=== PATIENT | male | born 2000 | race Caucasian/White ===

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

== ENCOUNTER 2018-06-17 01:17 | Emergency (ER) | payer MEDICAID, OTHER ==
[~2018-06-17] VITALS: Ht 177.8 cm; Wt 114.4 kg
[~2018-06-17 01:17] MED LIST changes: +BEN50 PO; +CETI10CA PO; +FLUT9.9S NASAL; +METF-849 PO; +NAPR-985 PO
[2018-06-17 01:23] VITALS: BP 161/82; Ht 177.8 cm; Wt 114.4 kg
--- NOTE | 2018-06-17 01:56 | ERD ---
ER Documentation Chief Complaint Chief Complaint painful urination x 1 day, also c/o blood in urine HPI This is a 17-year-old male who presents here in emergency department with complaints of dysuria, painful urination, for about a day. Also stated that he saw bright red blood whenever he urinates. Not sexually active. Denies headache, head injury, loss of consciousness, dizziness, neck pain, neck stiffness, throat pain, difficulty swallowing, difficulty breathing lying flat, shoulder pain, chest pain, back pain, abdominal pain, nausea, vomiting, constipation, diarrhea, loss of bowel and bladder control, trauma, injury, fa lls, difficulty walking due to pain, numbness or tingling sensation, calf pain, recent travel, recent major surgery in the last 3 weeks, calf pain, recent long travel, recent exposure to any illness, recent antibiotic use in the last 3 months, fever, chills, seizures. Past medical history: Diabetes. Medication: Metformin. Surgical history: Denies. Social: Denies smoking, use of alcoholic beverages, use of illegal drugs. ROS All systems reviewed and are negative except as per history of present illness. Medications Home Meds Active Scripts Phenazopyridine Hcl* (Pyridium*) 200 Mg Tab, 200 MG PO TID PRN for URINARY PAIN, #6 TAB Prov:LEONILA PRIDE 06/17/18 Cephalexin* (Keflex*) 500 Mg Capsule, 500 MG PO TID for 7 Days, CAP Prov:PASILABANCARLEEAR F 06/17/18 Metformin* (Glucophage*) 500 Mg Tab, 500 MG PO BID, #20 TAB Prov:FARHAN MORSE PA-C 10/24/17 Fluticasone Propionate (Flonase Allergy Relief) 9.9 Ml [place].susp, 2 SPRAY NASAL DAILY, #1 BOTTLE TO EACH NOSTRIL Prov:FARHAN MORSE PA-C 10/24/17 Cetirizine Hcl* (Zyrtec*) 10 Mg Capsule, 10 MG PO DAILY, #14 TAB.CHEW Prov:FARHAN MORSE PA-C 10/24/17 Acetaminophen* (Tylophen*) 500 Mg Capsule, 1 CAP PO Q6H PRN for PAIN AND OR ELEVATED TEMP, #30 CAP Prov:FARHAN MORSE PA-C 10/24/17 Naproxen* (Naprosyn*) 500 Mg Tablet, 500 MG PO BID PRN for PAIN AND/OR INFLAMMATION, #30 TAB Prov:FARHAN MORSE PA-C 10/24/17 Diphenhydramine Hcl* (Benadryl*) 50 Mg Cap, 50 MG PO QHS PRN for INSOMNIA, #20 CAP Prov:MARGARITO GAVIN PA-C 09/16/17 Metformin* (Glucophage*) 500 Mg Tab, 500 MG PO BID, #60 TAB Prov:MARSHALL RHODES NP 09/10/17 Metformin* (Glucophage*) 500 Mg Tab, 500 MG PO BID, #20 TAB Prov:FARHAN MORSE PA-C 08/18/17 Acetaminophen* (Tylophen*) 500 Mg Capsule, 1 CAP PO Q6H PRN for PAIN AND OR ELEVATED TEMP, #20 CAP Prov:DORENE DIEZ MD 12/15/16 Tramadol HCl (Tramadol HCl) 50 Mg Tablet, 50 MG PO Q4 PRN for PAIN, #15 TAB Prov:DORENE DIEZ MD 12/15/16 Allergies Allergies: Coded Allergies: No Known Drug Allergies (Verified Allergy, Mild, 12/15/16) PMhx/Soc History of Surgery: No Hx Neurological Disorder: No Hx Respiratory Disorders: No Hx Cardiac Disorders: No Hx Miscellaneous Medical Probl: Yes (DM; Deaf R side) Hx Alcohol Use: No Hx Substance Use: No Hx Tobacco Use: No Physical Exam Vitals Vital Signs Date Temp Pulse Resp B/P (MAP) Pulse Ox O2 O2 Flow FiO2 Time Delivery Rate 06/17/18 98.8 95 20 95 Room Air 04:04 06/17/18 97.5 103 20 161/82 97 01:23 (108) Physical Exam Const: No acute distress. Well-appearing. Head: Atraumatic Eyes: Normal Conjunctiva ENT: Normal External Ears, Nose and Mouth. Neck: Full range of motion. No meningismus. Resp: Clear to auscultation bilaterally Cardio: Regular rate and rhythm, no murmurs Abd: Soft, non tender, non distended. Normal bowel sounds. Negative Kenyon sign. Negative Divya sign (heel jar test). Negative psoas sign. Negative Rovsing sign. : Equal hair distribution. There is no testicular swelling. There is no scrotal swelling and tenderness. Bilateral inguinal area has no swelling/tenderness. Skin: No petechiae or rashes Back: No midline or flank tenderness. No CVA tenderness. Ext: No cyanosis, or edema Neur: Awake and alert. No neurological deficits. Psych: Normal Mood and Affect Result Diagram: 06/17/18 0205 06/17/18 0205 Results 24 hrs Laboratory Tests Test 06/17/18 02:05 White Blood Count 18.6 10^3/ul Red Blood Count 5.27 10^6/ul Hemoglobin 15.8 g/dl Hematocrit 45.2 % Mean Corpuscular Volume 85.8 fl Mean Corpuscular Hemoglobin 30.0 pg Mean Corpuscular Hemoglobin Concent 35.0 g/dl Red Cell Distribution Width 11.3 % Platelet Count 330 10^3/UL Mean Platelet Volume 9.7 fl Immature Granulocytes % 0.800 % Neutrophils % 80.0 % Lymphocytes % 11.9 % Monocytes % 6.1 % Eosinophils % 0.9 % Basophils % 0.3 % Nucleated Red Blood Cells % 0.0 /100WBC Immature Granulocytes # 0.150 10^3/ul Neutrophils # 14.9 10^3/ul Lymphocytes # 2.2 10^3/ul Monocytes # 1.1 10^3/ul Eosinophils # 0.2 10^3/ul Basophils # 0.1 10^3/ul Nucleated Red Blood Cells # 0.0 10^3/ul Prothrombin Time 10.9 Sec Prothrombin Time Ratio 0.9 INR International Normalized Ratio 0.78 Activated Partial Thromboplast Time 26.8 Sec Urine Color RED Urine Clarity CLOUDY Urine pH 6.0 Urine Specific [place] 1.036 Urine Ketones TRACE mg/dL Urine Nitrite NEGATIVE mg/dL Urine Bilirubin NEGATIVE mg/dL Urine Urobilinogen NEGATIVE mg/dL Urine Leukocyte Esterase 2+ Kayode/ul Urine Microscopic RBC > 182 /HPF Urine Microscopic WBC > 182 /HPF Urine Bacteria MODERATE /HPF Urine Hemoglobin 3+ mg/dL Urine Glucose 3+ mg/dL Urine Total Protein 2+ mg/dl Sodium Level 137 mmol/L Potassium Level 4.2 mmol/L Chloride Level 95 mmol/L Carbon Dioxide Level 29 mmol/L Anion Gap 13 Blood Urea Nitrogen 12 mg/dl Creatinine 0.58 mg/dl Est Glomerular Filtrat Rate mL/min > 60 mL/min Glucose Level 378 mg/dl Calcium Level 9.4 mg/dl Total Bilirubin 0.5 mg/dl Direct Bilirubin 0.00 mg/dl Indirect Bilirubin 0.5 mg/dl Aspartate Amino Transf (AST/SGOT) 19 IU/L Alanine Aminotransferase (ALT/SGPT) 26 IU/L Alkaline Phosphatase 121 IU/L Total Protein 7.7 g/dl Albumin 4.2 g/dl Globulin 3.50 g/dl Albumin/Globulin Ratio 1.20 Current Medications Medications Dose Sig/Satinder Start Time Status Last (Trade) Ordered Route PRN Stop Time Admin Dose Reason Admin Ceftriaxone 1 gm ONCE ONCE 06/17/18 DC 06/17/18 Sodium IM 03:30 03:33 (Rocephin) 06/17/18 03:31 Procedures/MDM Diagnostic tests: Urinalysis: UTI. Culture urine: Sent. Blood works: Reviewed. This case was discussed with my supervising physician, Dr. Margarito Cerrato. We both agreed with each other that this is not a DKA. He also suggested for me to give Ceftriaxone IM and send the patient with oral antibiotics. Treatment: Ceftriaxone IM. I offered IV insertion and IV fluids but patient strongly refused. Re-evaluation: Afebrile. Differential diagnosis I have low suspicion for DKA, sepsis, septic stone, obstructing kidney stone, renal failure. Final diagnosis: UTI. Prescription: Keflex. Pyridium. Follow-up with PCP in the next 24-48 hours. Come back here in the emergency department for any new symptoms or any worsening symptoms. All questions and concerns were answered. Patient and family members verbalized understanding and agreed with plan of care. Hemodynamically stable on discharge. Departure Diagnosis: Primary Impression: UTI (urinary tract infection) Condition: Stable Additional Instructions: Follow-up with PCP in the next 24-48 hours. Come back here in the emergency department for any new symptoms or any worsening symptoms. LEONILA PRIDE Jun 17, 2018 01:56
[2018-06-17] MEDS ORDERED: CEPH-443 PO (03:25)
[2018-06-17] MEDS ORDERED: PHEN-538 PO (03:25)
[2018-06-17] MEDS ORDERED: CEFTRIAXONE 1 GM INJ IM ONE (03:30)
[2018-06-17 04:04] VITALS: PULSE 95; RESP 20
== END 2018-06-17 04:00 | disposition home or self-care (01) ==
LOC: FTE 01:17
DX: N39.0 Urinary tract infection, site not specified (principal); E11.9 Type 2 diabetes mellitus without complications; R31.9 Hematuria, unspecified; Z79.84 Long term (current) use of oral hypoglycemic drugs
CPT/HCPCS: 80053; 81001; 85025; 85610; 85730; 87086; 96372; J0696; Z7502

== ENCOUNTER 2018-11-02 06:59 | Emergency (ER) | payer MEDICAID ==
[~2018-11-02] VITALS: Ht 172.7 cm; Wt 110.4 kg
[~2018-11-02 06:59] MED LIST changes: +CEPH-443 PO; +CLOT30CR24 TOP; +IBUP-1542 PO; +MUPI22OI2 TOP; +PHEN-538 PO; +SULF1TAB31 PO
[2018-11-02 07:03] VITALS: Ht 172.7 cm; Wt 110.4 kg
[2018-11-02] MEDS ORDERED: SOD CHLORIDE 0.9% 1,000 ML IV STA (08:10)
[2018-11-02] MEDS ORDERED: CLOT30CR24 TOP (09:28)
[2018-11-02] MEDS ORDERED: FLUC150T PO (09:28)
[2018-11-02] MEDS ORDERED: METF-849 PO (09:28)
[2018-11-02 09:47] VITALS: BP 135/89; PULSE 81; RESP 18
--- NOTE | 2018-11-02 12:17 | ERD ---
ER Documentation Chief Complaint Chief Complaint gential rash x3 days HPI This is a 17-year-old male patient presents emergency room with complaint of redness and itching to his penis starting 2 days ago. Denies being sexually active. Denies penile discharge. Patient states he is diabetic and stopped taking his metformin and has not followed up with his primary care doctor. He does not check his blood sugar at home. Patient states he just got burnout on being diabetic and stopped his medications and follow-ups. Denies any other chronic medical conditions. Denies abdominal pain, no nausea vomiting. ROS All systems reviewed and are negative except as per history of present illness. Medications Home Meds Active Scripts Metformin* (Glucophage*) 500 Mg Tab, 500 MG PO BID for DIABETES for 30 Days, #60 TAB Prov:TAURUS RABAGO NP 11/02/18 Clotrimazole* (Clotrimazole* AF) 1% - 30 Gm Cream.gm., 1 APPLIC TOP BID for 14 Days, TUB Prov:TAURUS RABAGO NP 11/02/18 Fluconazole* (Diflucan*) 150 Mg Tablet, 150 MG PO ONCE, #1 TAB Prov:TAURUS RABAGO NP 11/02/18 Sulfamethoxazole/Trimethoprim* (Bactrim Ds* Tablet) 1 Each Tablet, 1 TAB PO BID for 7 Days, #14 TAB Prov:DORENE DIEZ MD 08/05/18 Clotrimazole* (Clotrimazole* AF) 1% - 30 Gm Cream.gm., 1 APPLIC TOP BID for 10 Days, TUB Prov:DORENE DIEZ MD 08/05/18 Ibuprofen* (Motrin*) 600 Mg Tab, 600 MG PO Q6, #20 TAB Prov:DORENE DIEZ MD 08/05/18 Ibuprofen* (Motrin*) 600 Mg Tab, 600 MG PO Q6, #30 TAB Prov:SYLVAIN IVAN PA-C 07/17/18 Mupirocin* (Bactroban*) 2% -22 Gram Oint...g., 1 APPLIC TOP BID for 7 Days, EA Prov:SYLVAIN IVAN PA-C 07/17/18 Sulfamethoxazole/Trimethoprim* (Bactrim Ds* Tablet) 1 Each Tablet, 1 TAB PO BID for 7 Days, #14 TAB Prov:SYLVAIN IVAN PA-C 07/17/18 Cephalexin* (Keflex*) 500 Mg Capsule, 500 MG PO QID for 7 Days, CAP Prov:SYLVAIN IVAN-C 07/17/18 Phenazopyridine Hcl* (Pyridium*) 200 Mg Tab, 200 MG PO TID PRN for URINARY PAIN, #6 TAB Prov:PASILABANCARLEEAR F 06/17/18 Cephalexin* (Keflex*) 500 Mg Capsule, 500 MG PO TID for 7 Days, CAP Prov:PASILABAN,KLAR F 06/17/18 Metformin* (Glucophage*) 500 Mg Tab, 500 MG PO BID, #20 TAB Prov:PROFARHAN ARMSTRONG-C 10/24/17 Fluticasone Propionate (Flonase Allergy Relief) 9.9 Ml [place].susp, 2 SPRAY NASAL DAILY, #1 BOTTLE TO EACH NOSTRIL Prov:FARHAN MORSE-C 10/24/17 Cetirizine Hcl* (Zyrtec*) 10 Mg Capsule, 10 MG PO DAILY, #14 TAB.CHEW Prov:FARHAN MORSE-C 10/24/17 Acetaminophen* (Tylophen*) 500 Mg Capsule, 1 CAP PO Q6H PRN for PAIN AND OR ELEVATED TEMP, #30 CAP Prov:FARHAN MORSE-C 10/24/17 Naproxen* (Naprosyn*) 500 Mg Tablet, 500 MG PO BID PRN for PAIN AND/OR INFLAMMATION, #30 TAB Prov:FARHAN MORSE-C 10/24/17 Diphenhydramine Hcl* (Benadryl*) 50 Mg Cap, 50 MG PO QHS PRN for INSOMNIA, #20 CAP Prov:LYDIA GAVINC 09/16/17 Metformin* (Glucophage*) 500 Mg Tab, 500 MG PO BID, #60 TAB Prov:MARSHALL RHODES NP 09/10/17 Metformin* (Glucophage*) 500 Mg Tab, 500 MG PO BID, #20 TAB Prov:PROFARHAN ARMSTRONG-C 08/18/17 Acetaminophen* (Tylophen*) 500 Mg Capsule, 1 CAP PO Q6H PRN for PAIN AND OR ELEVATED TEMP, #20 CAP Prov:DORENE DIEZ MD 12/15/16 Tramadol HCl (Tramadol HCl) 50 Mg Tablet, 50 MG PO Q4 PRN for PAIN, #15 TAB Prov:DORENE DIEZ MD 12/15/16 Allergies Allergies: Coded Allergies: No Known Drug Allergies (Verified Allergy, Mild, 07/17/18) PMhx/Soc Medical and Surgical Hx: pt denies Medical Hx, pt denies Surgical Hx History of Surgery: No Anesthesia Reaction: No Hx Neurological Disorder: No Hx Respiratory Disorders: No Hx Cardiac Disorders: No Hx Psychiatric Problems: No Hx Miscellaneous Medical Probl: Yes (Deaf R side) Hx Alcohol Use: No Hx Substance Use: No Hx Tobacco Use: No FmHx Family History: diabetes Physical Exam Vitals Vital Signs Date Temp Pulse Resp B/P (MAP) Pulse Ox O2 O2 Flow FiO2 Time Delivery Rate 11/02/18 98.4 81 18 135/89 99 Room Air 09:47 (104) 11/02/18 98.2 87 18 149/97 99 07:03 (114) Physical Exam Const: No acute distress Head: Atraumatic Eyes: Normal Conjunctiva, PERRL ENT: Normal External Ears, Nose and Mouth. Neck: Full range of motion. No meningismus. No lymphadenopathy Resp: Clear to auscultation bilaterally, no rales, no rhonchi, no wheezing Cardio: Regular rate and rhythm, no murmurs Abd: Soft, non tender, non distended. Normal bowel sounds Skin: No petechiae, no bruising, no rash. Genital exam: testicles without lesions or redness, pt is not circumcised, foreskin retracts without resistance, erythema to glans penis, no discharge not ed Back: No midline or flank tenderness Ext: No cyanosis, or edema Neur: Awake and alert Psych: Normal Mood and Affect Result Diagram: 11/02/1830 11/02/18 0730 Results 24 hrs Laboratory Tests Test 11/02/18 07:30 White Blood Count 9.1 10^3/ul Red Blood Count 5.16 10^6/ul Hemoglobin 15.4 g/dl Hematocrit 44.7 % Mean Corpuscular Volume 86.6 fl Mean Corpuscular Hemoglobin 29.8 pg Mean Corpuscular Hemoglobin Concent 34.5 g/dl Red Cell Distribution Width 11.4 % Platelet Count 376 10^3/UL Mean Platelet Volume 9.7 fl Immature Granulocytes % 1.000 % Neutrophils % 70.6 % Lymphocytes % 21.6 % Monocytes % 5.5 % Eosinophils % 0.9 % Basophils % 0.4 % Nucleated Red Blood Cells % 0.0 /100WBC Immature Granulocytes # 0.090 10^3/ul Neutrophils # 6.4 10^3/ul Lymphocytes # 2.0 10^3/ul Monocytes # 0.5 10^3/ul Eosinophils # 0.1 10^3/ul Basophils # 0.0 10^3/ul Nucleated Red Blood Cells # 0.0 10^3/ul Urine Color STRAW Urine Clarity CLEAR Urine pH 7.0 Urine Specific [place] 1.031 Urine Ketones TRACE mg/dL Urine Nitrite NEGATIVE mg/dL Urine Bilirubin NEGATIVE mg/dL Urine Urobilinogen 1+ mg/dL Urine Leukocyte Esterase NEGATIVE Kayode/ul Urine Hemoglobin NEGATIVE mg/dL Urine Glucose 3+ mg/dL Urine Total Protein NEGATIVE mg/dl Sodium Level 138 mmol/L Potassium Level 4.0 mmol/L Chloride Level 99 mmol/L Carbon Dioxide Level 29 mmol/L Anion Gap 10 Blood Urea Nitrogen 12 mg/dl Creatinine 0.52 mg/dl Est Glomerular Filtrat Rate mL/min > 60 mL/min Glucose Level 417 mg/dl Hemoglobin A1c 11.7 % Calcium Level 9.0 mg/dl Total Bilirubin 0.3 mg/dl Direct Bilirubin 0.00 mg/dl Indirect Bilirubin 0.3 mg/dl Aspartate Amino Transf (AST/SGOT) 21 IU/L Alanine Aminotransferase (ALT/SGPT) 24 IU/L Alkaline Phosphatase 126 IU/L Total Protein 8.2 g/dl Albumin 4.4 g/dl Globulin 3.80 g/dl Albumin/Globulin Ratio 1.15 Current Medications Medications Dose Sig/Satinder Start Time Status Last (Trade) Ordered Route PRN Stop Time Admin Dose Reason Admin Sodium 1,000 ml @ Q1H STAT 11/02/18 DC 11/02/18 Chloride 1,000 mls/hr IV 08:10 08:16 11/02/18 09:09 Procedures/MDM This is a 17-year-old patient who presents the emergency room with rash and itching on head of penis. Patient also reports being diabetic and has had fungal infections with high blood sugar in the past. ED COURSE: The patient was stable throughout ED course. I kept the patient and/or family informed of laboratory and diagnostic imaging results throughout the ED course. EKG: MEDICATIONS GIVEN: Hydrated with normal saline, MDM: Discussed exam results with patient. Patient provided with laboratory results including his hemoglobin A1c. Metformin initiated today. Instructed patient on diabetic diet. Patient provided with referrals. Instructed patient on use of fluconazole and Clotrimazole. There is no indication for DKA, infection, peritonitis or other life-threatening or serious etiology. This patients soft tissue infection appears to be appropriate for outpatient treatment with close follow-up for reevaluation by a clinician within 24-48 hours. A serious, rapidly progressive infectious process is unlikely based upon the patients presentation and appearance of the infection. Antifungal treatment has been initiated here and response to treatme nt will be based on reassessment at close follow-up. The patient has been instructed on signs and symptoms of acute progression of infection and DKA and to return immediately if any of these occur. The patient appears stable for discharge and has been instructed to return immediately if the symptoms worsen in any way, or in 8-12 hours if not improved for re-evaluation. The patient has been instructed to return if the symptoms worsen or change in any way. DISPOSITION: The patient has been discharge home to follow-up with community physician. Departure Diagnosis: Primary Impression: Diabetes Additional Impression: Balanitis Condition: Stable Patient Instructions: Diabetes: Caring for Your Body, Balanitis Referrals: COMMUNITY CLINICS YOU HAVE RECEIVED A MEDICAL SCREENING EXAM AND THE RESULTS INDICATE THAT YOU DO NOT HAVE A CONDITION THAT REQUIRES URGENT TREATMENT IN THE EMERGENCY DEPARTMENT. FURTHER EVALUATION AND TREATMENT OF YOUR CONDITION CAN WAIT UNTIL YOU ARE SEEN IN YOUR DOCTORS OFFICE WITHIN THE NEXT 1-2 DAYS. IT IS YOUR RESPONSIBILITY TO MAKE AN APPOINTMENT FOR FOLOW-UP CARE. IF YOU HAVE A PRIMARY DOCTOR --you should call your primary doctor and schedule an appointment IF YOU DO NOT HAVE A PRIMARY DOCTOR YOU CAN CALL OUR PHYSICIAN REFERRAL HOTLINE AT IF YOU CAN NOT AFFORD TO SEE A PHYSICIAN YOU CAN CHOSE FROM THE FOLLOWING [facility] [address] [facility] [address] [facility] [address] [facility] [address] [facility]. [facility] [address] [facility]. [facility] [address] Additional Instructions: Thank you very much for allowing us to participate in your care. Your health and safety is our top priority at [facility]. Call your primary care doctor TOMORROW for an appointment during the next 2-4 days and bring all the information and medications prescribed. Have prescriptions filled and follow precisely the directions on the label. If the symptoms get worse and your provider is unavailable, return to the Emergency Department immediately. YOU MUST FOLLOW-UP WITH YOUR DOCTOR NEXT WEEK! DECREASE CARBOHYDRATE INTAKE, INCREASE HYDRATION START METFORMIN, 1 TAB TWICE DAILY TAKE FLUCONOZOLE (1 PILL) AND USE CREAM TWICE DAILY X 14 DAYS OR UNTIL RESOLVED TAURUS RABAGO NP November 02, 2018 12:17
== END 2018-11-02 09:40 | disposition home or self-care (01) ==
LOC: FTE 06:59
DX: N48.1 Balanitis (principal); E11.9 Type 2 diabetes mellitus without complications; Z79.84 Long term (current) use of oral hypoglycemic drugs
CPT/HCPCS: 36415; 80053; 81003; 83036; 85025; 96360; J7030; Z7502

== ENCOUNTER 2018-12-06 13:39 | Emergency (ER) | payer MEDICAID ==
[~2018-12-06] VITALS: Ht 177.8 cm; Wt 111.2 kg
[~2018-12-06 13:39] MED LIST changes: +FLUC150T PO
[2018-12-06 13:41] VITALS: BP 148/71; PULSE 89; RESP 18; Ht 177.8 cm; Wt 111.2 kg
[2018-12-06] MEDS ORDERED: CLOT30CR24 TOP (14:23)
[2018-12-06] MEDS ORDERED: AZITHROMYCIN 500 MG TAB PO ONE (14:30)
[2018-12-06] MEDS ORDERED: LIDOCAINE 1% (MDV) 20 ML INJ SC ONE (14:30)
[2018-12-06] MEDS ORDERED: CEFTRIAXONE 250 MG INJ IM ONE (14:30)
--- NOTE | 2018-12-06 14:33 | ERD ---
ER Documentation Chief Complaint Chief Complaint rash on genital area x 1 week HPI 17-year-old male presented to the ED for pain with urination, white discharge and had a penis x1 week. Patient states his last sexual encounter was about a month ago and he has concerns for possible STD exposure. Patient is a diabetic who is currently taking metformin and has history of balantis that was treated over a year ago. Patient denies any allergies to medications ROS All systems reviewed and are negative except as per history of present illness. Medications Home Meds Active Scripts Clotrimazole* (Clotrimazole* AF) 1% - 30 Gm Cream.gm., 1 APPLIC TOP BID for 14 Days, TUB Prov:DAVID BISHOP PA-C 12/06/18 Metformin* (Glucophage*) 500 Mg Tab, 500 MG PO BID for DIABETES for 30 Days, #60 TAB Prov:TAURUS RABAGO NP 11/02/18 Clotrimazole* (Clotrimazole* AF) 1% - 30 Gm Cream.gm., 1 APPLIC TOP BID for 14 Days, TUB Prov:TAURUS RABAGO NP 11/02/18 Fluconazole* (Diflucan*) 150 Mg Tablet, 150 MG PO ONCE, #1 TAB Prov:TAURUS RABAGO NP 11/02/18 Sulfamethoxazole/Trimethoprim* (Bactrim Ds* Tablet) 1 Each Tablet, 1 TAB PO BID for 7 Days, #14 TAB Prov:DORENE DIEZ MD 08/05/18 Clotrimazole* (Clotrimazole* AF) 1% - 30 Gm Cream.gm., 1 APPLIC TOP BID for 10 Days, TUB Prov:DORENE DIEZ MD 08/05/18 Ibuprofen* (Motrin*) 600 Mg Tab, 600 MG PO Q6, #20 TAB Prov:DORENE DIEZ MD 08/05/18 Ibuprofen* (Motrin*) 600 Mg Tab, 600 MG PO Q6, #30 TAB Prov:SYLVAIN IVAN PA-C 07/17/18 Mupirocin* (Bactroban*) 2% -22 Gram Oint...g., 1 APPLIC TOP BID for 7 Days, EA Prov:SYLVAIN IVAN PA-C 07/17/18 Sulfamethoxazole/Trimethoprim* (Bactrim Ds* Tablet) 1 Each Tablet, 1 TAB PO BID for 7 Days, #14 TAB Prov:SYLVAIN IVANC 07/17/18 Cephalexin* (Keflex*) 500 Mg Capsule, 500 MG PO QID for 7 Days, CAP Prov:SYLVAIN IVAN-C 07/17/18 Phenazopyridine Hcl* (Pyridium*) 200 Mg Tab, 200 MG PO TID PRN for URINARY PAIN, #6 TAB Prov:PASILABANCARLEEAR F 06/17/18 Cephalexin* (Keflex*) 500 Mg Capsule, 500 MG PO TID for 7 Days, CAP Prov:PASILABAN,KLAR F 06/17/18 Metformin* (Glucophage*) 500 Mg Tab, 500 MG PO BID, #20 TAB Prov:FARHAN MORSEC 10/24/17 Fluticasone Propionate (Flonase Allergy Relief) 9.9 Ml [place].susp, 2 SPRAY NASAL DAILY, #1 BOTTLE TO EACH NOSTRIL Prov:FARHAN MORSEC 10/24/17 Cetirizine Hcl* (Zyrtec*) 10 Mg Capsule, 10 MG PO DAILY, #14 TAB.CHEW Prov:FARHAN MORSEC 10/24/17 Acetaminophen* (Tylophen*) 500 Mg Capsule, 1 CAP PO Q6H PRN for PAIN AND OR ELEVATED TEMP, #30 CAP Prov:FARHAN MORSEC 10/24/17 Naproxen* (Naprosyn*) 500 Mg Tablet, 500 MG PO BID PRN for PAIN AND/OR INFLAMMATION, #30 TAB Prov:FARHAN MORSEC 10/24/17 Diphenhydramine Hcl* (Benadryl*) 50 Mg Cap, 50 MG PO QHS PRN for INSOMNIA, #20 CAP Prov:LYDIA GAVINC 09/16/17 Metformin* (Glucophage*) 500 Mg Tab, 500 MG PO BID, #60 TAB Prov:MARSHALL RHODES NP 09/10/17 Metformin* (Glucophage*) 500 Mg Tab, 500 MG PO BID, #20 TAB Prov:FARHAN MORSEC 08/18/17 Acetaminophen* (Tylophen*) 500 Mg Capsule, 1 CAP PO Q6H PRN for PAIN AND OR ELEVATED TEMP, #20 CAP Prov:DORENE DIEZ MD 12/15/16 Tramadol HCl (Tramadol HCl) 50 Mg Tablet, 50 MG PO Q4 PRN for PAIN, #15 TAB Prov:DORENE DIEZ MD 12/15/16 Allergies Allergies: Coded Allergies: No Known Drug Allergies (Verified Allergy, Mild, 07/17/18) PMhx/Soc History of Surgery: No Anesthesia Reaction: No Hx Neurological Disorder: No Hx Respiratory Disorders: No Hx Cardiac Disorders: No Hx Psychiatric Problems: No Hx Miscellaneous Medical Probl: Yes (Deaf R side) Hx Alcohol Use: No Hx Substance Use: No Hx Tobacco Use: No Smoking Status: Never smoker FmHx Family History: No diabetes, No coronary disease, No other Physical Exam Vitals Vital Signs Date Temp Pulse Resp B/P (MAP) Pulse Ox O2 O2 Flow FiO2 Time Delivery Rate 12/06/18 98.6 89 18 148/71 98 13:41 (96) Physical Exam GENERAL: The patient is well-appearing, well-nourished, in no acute distress HEENT: Atraumatic. Conjunctivae are pink. Pupils equal, round, and reactive to light. There is no scleral icterus. Tympanic membranes clear bilaterally. Oropharynx clear. No nystagmus or photophobia. NECK: C-spine is soft and supple. There is no meningismus. There is no cervical lymphadenopathy. CHEST: Clear to auscultation bilaterally. There are no rales, wheezes or rhonchi. HEART: Regular rate and rhythm. No murmurs, clicks, rubs or gallops. ABDOMEN:Soft, nontender and nondistended. Good bowel sounds. No rebound or guarding. No gross peritonitis. No gross organomegaly or masses. No Kenyon sign or McBurney point tenderness. BACK: No midline or flank tenderness. : Patient uncircumcised male able to retract the foreskin without difficulty, no signs of inflammation, no signs of ulcers, there is a white film present in the head of his penis, no open lesions, patient's testicles are distended in normal position no pain on palpation. Results 24 hrs Current Medications Medications Dose Sig/Satinder Start Time Status Last (Trade) Ordered Route PRN Stop Time Admin Dose Reason Admin Ceftriaxone 250 mg ONCE ONCE 12/06/18 DC 12/06/18 Sodium IM 14:30 14:44 (Rocephin) 12/06/18 14:31 1,000 mg ONCE ONCE 12/06/18 DC 12/06/18 Azithromycin PO 14:30 14:43 (Zithromax) 12/06/18 14:31 Lidocaine 20 ml ONCE ONCE 12/06/18 DC 12/06/18 (Xylocaine SC 14:30 14:45 1% (Mdv) 20 12/06/18 14:31 ml) Procedures/MDM ED course Gonorrhea chlamydia screen Empiric treatment The patient was stable throughout the ED course. The patient and/or family informed of laboratory and diagnostic imaging results throughout the ED course. Medications given in ER: Azithromycin Ceftriaxone Patient tolerated medication well with no adverse reactions. Patient reported improvement in pain. Medical decision makin-year-old male presenting to the ED with a rash on penis x1 week. Patient has concerns for possible STD exposure states his last sexual encounter was about a month ago he cannot recall if use protection and he is worried that he had exposure STD. Physical exam was unremarkable for any lesions discharge. Konrad trivedi's able to retract foreskin without difficulty. Patient has notable white film on head of penis. Patient is a history of diabetes and was treated for balantis in the past. Patient denies any blood in urine, difficulty passing urine, difficulty passing stool. Patient denies fever chills night sweats. At this time I have low suspicion for pyelonephritis, nephrolithiasis, ap pendicitis, epididymitis, urethritis, orchitis, prostatitis, phimosis, priapism, penile contusion, incarcerated hernia or strangulated hernia. Discussed with the patient about being empirically treated for gonorrhea and chlamydia and patient states that he wants the treatment. Patient was also advised that he has the Balantis has been to be discharged with a medication for Clotrimazole. Patient was given ceftriaxone and azithromycin in the ED tolerated medication well with no side effects. Patient was advised that he needs follow-up with his primary care provider regarding this visit and he should refrain from any sexual activity for the next week and until he is rescreened to ensure that there is no STD infection. Patient no further questions upon discharge plans follow-up with his primary care provider. Patient was advised if symptoms worsen return to ER immediately. Prescription for home: Clotrimazole Discharge: At this time, patient is stable for discharge and outpatient management. I have instructed the patient to follow-up with his\her primary care physician in 1 to 2 days. I have discussed with the patient the possibility of needing to see a specialist for further work-up and imaging studies if symptoms persist. I have instructed the patient to promptly return to the ER for any new or worsening symptoms including increased pain, fever, nausea, vomiting, weakness or LOC. The patient and\or family expressed understanding of and agreement with this plan. All questions were answered. Home care instructions were provided. Disclaimer: Inadvertent spelling and grammatical errors are likely due to EHR\dictation software use and do not reflect on the overall quality of patient care. Also, please note that the electronic time recorded on the note does not necessarily reflect the actual time of the patient encounter. Departure Diagnosis: Primary Impression: Balanitis Additional Impression: Screen for STD (sexually transmitted disease) Condition: Stable Patient Instructions: Balanitis Referrals: [facility] YOU HAVE RECEIVED A MEDICAL SCREENING EXAM AND THE RESULTS INDICATE THAT YOU DO NOT HAVE A CONDITION THAT REQUIRES URGENT TREATMENT IN THE EMERGENCY DEPARTMENT. FURTHER EVALUATION AND TREATMENT OF YOUR CONDITION CAN WAIT UNTIL YOU ARE SEEN IN YOUR DOCTORS OFFICE WITHIN THE NEXT 1-2 DAYS. IT IS YOUR RESPONSIBILITY TO MAKE AN APPOINTMENT FOR FOLOW-UP CARE. IF YOU HAVE A PRIMARY DOCTOR --you should call your primary doctor and schedule an appointment IF YOU DO NOT HAVE A PRIMARY DOCTOR YOU CAN CALL OUR PHYSICIAN REFERRAL HOTLINE AT IF YOU CAN NOT AFFORD TO SEE A PHYSICIAN YOU CAN CHOSE FROM THE FOLLOWING [facility] [address] [facility] [address] [facility] [facility] [address] [facility] [address] [facility] [address] [facility]. [facility]. [address] [facility]. [facility] YOU HAVE RECEIVED A MEDICAL SCREENING EXAM AND THE RESULTS INDICATE THAT YOU DO NOT HAVE A CONDITION THAT REQUIRES URGENT TREATMENT IN THE EMERGENCY DEPARTMENT. FURTHER EVALUATION AND TREATMENT OF YOUR CONDITION CAN WAIT UNTIL YOU ARE SEEN IN YOUR DOCTORS OFFICE WITHIN THE NEXT 1-2 DAYS. IT IS YOUR RESPONSIBILITY TO MAKE AN APPOINTMENT FOR FOLOW-UP CARE. IF YOU HAVE A PRIMARY DOCTOR --you should call your primary doctor and schedule and appointment IF YOU DO NOT HAVE A PRIMARY DOCTOR YOU CAN CALL OUR PHYSICIAN REFERRAL HOTLINE AT . IF YOU CAN NOT AFFORD TO SEE A PHYSICIAN YOU CAN CHOSE FROM THE FOLLOWING [facility] INSTITUTIONS: [facility] [address] [place] [address] [facility] [address] [place] [address] [facility] [address] [place] [address] Additional Instructions: Call your primary care doctor TOMORROW for an appointment during the next 1 WEEK.Tell the secretary office clerk that you were referred from this facility.See the doctor sooner or return here if your condition worsens before your appointment time. DAVID BISHOP PA-C Dec 06, 2018 14:33
== END 2018-12-06 14:56 | disposition home or self-care (01) ==
LOC: FTE 13:39
DX: N48.1 Balanitis (principal); Z11.3 Encounter for screening for infections with a predominantly sexual mode of transmission
CPT/HCPCS: 87591; J0696; Z7610; 96372

== ENCOUNTER 2019-01-23 11:39 | Emergency (ER) | payer MEDICAID ==
[~2019-01-23] VITALS: Ht 165.1 cm; Wt 120.0 kg
[~2019-01-23 11:39] MED LIST changes: +METF500T24 PO
[2019-01-23 11:45] VITALS: Ht 165.1 cm; Wt 120.0 kg
[2019-01-23] MEDS ORDERED: SOD CHLORIDE 0.9% 1,000 ML IV ONE (12:30)
--- NOTE | 2019-01-23 12:58 | ERD ---
ER Documentation Chief Complaint Chief Complaint X2 DAYS HAVING BS 200-300 ON METFORMIN, SYMPTOMATIC HPI 18-year-old man who presents to the emergency room complaining of hyperglycemia over the last several days. The patient states compliance with his medication. No fever or illness. No chest pain headache or shortness of breath, no strokelike symptoms. Patient states that there is been social stressors at home. His diet has been poor over the last several days and he drinks store- bought juice on a regular basis. ROS All systems reviewed and are negative except as per history of present illness. Medications Home Meds Reported Medications Metformin Hcl* (Metformin Hcl*) 500 Mg Tablet, 500 MG PO WITH BREAKFAST DINNE, #60 TAB 01/23/19 Discontinued Scripts Clotrimazole* (Clotrimazole* AF) 1% - 30 Gm Cream.gm., 1 APPLIC TOP BID for 14 Days, TUB Prov:DAVID BISHOP PA-C 12/06/18 Metformin* (Glucophage*) 500 Mg Tab, 500 MG PO BID for DIABETES for 30 Days, #60 TAB Prov:TAURUS RABAGO NP 11/02/18 Clotrimazole* (Clotrimazole* AF) 1% - 30 Gm Cream.gm., 1 APPLIC TOP BID for 14 Days, TUB Prov:TAURUS RABAGO NP 11/02/18 Fluconazole* (Diflucan*) 150 Mg Tablet, 150 MG PO ONCE, #1 TAB Prov:TAURUS RABAGO NP 11/02/18 Sulfamethoxazole/Trimethoprim* (Bactrim Ds* Tablet) 1 Each Tablet, 1 TAB PO BID for 7 Days, #14 TAB Prov:DORENE DIEZ MD 08/05/18 Clotrimazole* (Clotrimazole* AF) 1% - 30 Gm Cream.gm., 1 APPLIC TOP BID for 10 Days, TUB Prov:DORENE DIEZ MD 08/05/18 Ibuprofen* (Motrin*) 600 Mg Tab, 600 MG PO Q6, #20 TAB Prov:DORENE DIEZ MD 08/05/18 Ibuprofen* (Motrin*) 600 Mg Tab, 600 MG PO Q6, #30 TAB Prov:SYLVAIN IVAN PA-C 07/17/18 Mupirocin* (Bactroban*) 2% -22 Gram Oint...g., 1 APPLIC TOP BID for 7 Days, EA Prov:MONCHOSYLVAIN ALMONTEC 07/17/18 Sulfamethoxazole/Trimethoprim* (Bactrim Ds* Tablet) 1 Each Tablet, 1 TAB PO BID for 7 Days, #14 TAB Prov:MONCHOSYLVAIN ALMONTEC 07/17/18 Cephalexin* (Keflex*) 500 Mg Capsule, 500 MG PO QID for 7 Days, CAP Prov:SYLVAIN IVAN-C 07/17/18 Phenazopyridine Hcl* (Pyridium*) 200 Mg Tab, 200 MG PO TID PRN for URINARY PAIN, #6 TAB Prov:PASILABANCARLEEAR F 06/17/18 Cephalexin* (Keflex*) 500 Mg Capsule, 500 MG PO TID for 7 Days, CAP Prov:PASILABAN,KLAR F 06/17/18 Metformin* (Glucophage*) 500 Mg Tab, 500 MG PO BID, #20 TAB Prov:FARHAN MORSEC 10/24/17 Fluticasone Propionate (Flonase Allergy Relief) 9.9 Ml [place].susp, 2 SPRAY NASAL DAILY, #1 BOTTLE TO EACH NOSTRIL Prov:FARHAN MORSEC 10/24/17 Cetirizine Hcl* (Zyrtec*) 10 Mg Capsule, 10 MG PO DAILY, #14 TAB.CHEW Prov:FARHAN MORSE-C 10/24/17 Acetaminophen* (Tylophen*) 500 Mg Capsule, 1 CAP PO Q6H PRN for PAIN AND OR ELEVATED TEMP, #30 CAP Prov:FARHAN MORSE-C 10/24/17 Naproxen* (Naprosyn*) 500 Mg Tablet, 500 MG PO BID PRN for PAIN AND/OR INFLAMMATION, #30 TAB Prov:FARHAN MORSE-C 10/24/17 Diphenhydramine Hcl* (Benadryl*) 50 Mg Cap, 50 MG PO QHS PRN for INSOMNIA, #20 CAP Prov:LYDIA GAVIN-C 09/16/17 Metformin* (Glucophage*) 500 Mg Tab, 500 MG PO BID, #60 TAB Prov:MARSHALL RHODES NP 09/10/17 Metformin* (Glucophage*) 500 Mg Tab, 500 MG PO BID, #20 TAB Prov:FARHAN MORSE PA-C 08/18/17 Acetaminophen* (Tylophen*) 500 Mg Capsule, 1 CAP PO Q6H PRN for PAIN AND OR ELEVATED TEMP, #20 CAP Prov:DORENE DIEZ MD 12/15/16 Tramadol HCl (Tramadol HCl) 50 Mg Tablet, 50 MG PO Q4 PRN for PAIN, #15 TAB Prov:DORENE DIEZ MD 12/15/16 Allergies Allergies: Coded Allergies: No Known Drug Allergies (Verified Allergy, Mild, 01/23/19) PMhx/Soc Medical and Surgical Hx: pt denies Surgical Hx History of Surgery: No Anesthesia Reaction: No Hx Neurological Disorder: No Hx Respiratory Disorders: No Hx Cardiac Disorders: No Hx Psychiatric Problems: No Hx Miscellaneous Medical Probl: Yes (Deaf R side) Hx Alcohol Use: No Hx Substance Use: No Hx Tobacco Use: No Smoking Status: Never smoker FmHx Family History: No diabetes Physical Exam Vitals Vital Signs Date Temp Pulse Resp B/P (MAP) Pulse Ox O2 O2 Flow FiO2 Time Delivery Rate 01/23/19 98.5 88 20 114/65 100 Room Air 13:51 (81) 01/23/19 98.1 83 18 157/95 99 11:45 (115) Physical Exam General: Well developed, well nourished, no acute distress Head: Normocephalic, atraumatic. Eyes: Pupils equally reactive, EOM intact ENT: Moist mucous membranes Neck: Supple, no lymphadenopathy Respiratory: Lungs clear bilaterally, no distress Cardiovascular: RRR, no murmurs, rubs, or gallops Abdominal: Soft, non-tender, non-distended, no peritoneal signs : Deferred MSK: No edema, no unilateral swelling, 5/5 strength Neurologic: Alert and oriented, moving all extremities, normal speech, no focal weakness, no cerebellar signs Skin: No rash Psych: Normal mood Result Diagram: 01/23/19 1234 01/23/19 1234 Results 24 hrs Laboratory Tests Test 01/23/19 12:26 01/23/19 12:34 01/23/19 13:38 Bedside Glucose 287 mg/dL 219 mg/dL White Blood Count 8.7 10^3/ul Red Blood Count 5.34 10^6/ul Hemoglobin 16.0 g/dl Hematocrit 45.8 % Mean Corpuscular Volume 85.8 fl Mean Corpuscular Hemoglobin 30.0 pg Mean Corpuscular 34.9 g/dl Hemoglobin Concent Red Cell Distribution Width 11.2 % Platelet Count 372 10^3/UL Mean Platelet Volume 9.7 fl Immature Granulocytes % 0.700 % Neutrophils % 63.9 % Lymphocytes % 26.4 % Monocytes % 7.5 % Eosinophils % 1.0 % Basophils % 0.5 % Nucleated Red Blood Cells % 0.0 /100WBC Immature Granulocytes # 0.060 10^3/ul Neutrophils # 5.5 10^3/ul Lymphocytes # 2.3 10^3/ul Monocytes # 0.7 10^3/ul Eosinophils # 0.1 10^3/ul Basophils # 0.0 10^3/ul Nucleated Red Blood Cells # 0.0 10^3/ul Urine Color YELLOW Urine Clarity CLEAR Urine pH 7.0 Urine Specific [place] 1.032 Urine Ketones TRACE mg/dL Urine Nitrite NEGATIVE mg/dL Urine Bilirubin NEGATIVE mg/dL Urine Urobilinogen 1+ mg/dL Urine Leukocyte Esterase NEGATIVE [place]/ul Urine Hemoglobin NEGATIVE mg/dL Urine Glucose 3+ mg/dL Urine Total Protein NEGATIVE mg/dl Blood Gas Specimen Source Blood venous Arterial Blood Date Drawn 01/23/2019 12:35:10 PM Arterial Blood Gas VENOUS LINE Puncture Site Cesar Test N/A Venous Blood pH 7.355 Venous Blood pCO2 54.9 mmHG (Temp Corrected) Venous Blood pO2 21.8 mmHG (Temp Corrected) Venous Blood HCO3 30.0 mmol/L Venous Blood Oxygen Saturation 39.0 mmHG Venous Blood Base Excess 2.8 mmol/L Venous Blood Total Hemoglobin 17.1 g/dl Venous Blood Oxyhemoglobin 38.6 % Venous Blood Methemoglobin 0.4 % Blood Gas A-a O2 Differential 62.2 mmHg Carboxyhemoglobin 0.7 % Blood Gas Temperature 37.0 C Blood Gas Modality ROOM AIR FiO2 21.0 % Blood Gas Notified Whom Paul Blood Gas Notified Time 01/23/2019 12:39:40 PM Sodium Level 141 mmol/L Potassium Level 4.1 mmol/L Chloride Level 101 mmol/L Carbon Dioxide Level 31 mmol/L Anion Gap 9 Blood Urea Nitrogen 11 mg/dl Creatinine 0.53 mg/dl Est Glomerular Filtrat > 60 mL/min Rate mL/min Glucose Level 292 mg/dl Calcium Level 9.6 mg/dl Phosphorus Level 3.4 mg/dl Magnesium Level 1.6 mg/dl Current Medications Medications Dose Sig/Satinder Start Time Status Last (Trade) Ordered Route PRN Stop Time Admin Dose Reason Admin Sodium 1,000 ml @ ONCE ONCE 01/23/19 DC 01/23/19 Chloride 1,000 mls/hr IV 12:30 01/23/19 12:40 13:29 Procedures/MDM LAB INTERPRETATION: I reviewed the laboratory testing and it shows no evidence of acute process MEDICAL DECISION MAKING: The patient's triggers seem to be more stress and diet related. He has no clin ical signs of diabetic ketoacidosis however screening would be initiated given the patient's history and comorbidities. Patient was advised and educated on healthy diet related to diabetes. He can follow-up with his primary care physician. Titration of his metformin may be necessary if symptoms do not improve. ER COURSE: * Laboratory testing shows no evidence of DKA. The patient can be safely discharged. CONSULTATION: None DISPOSITION PLAN: The patient does not have an identifiable emergent medical condition that warrants inpatient hospitalization at this time. The patient is deemed safe for discharge with outpatient follow-up. We discussed follow up with the patient's primary care doctor within 24 to 48 hours as needed. We also discussed return to the emergency room for worsening symptoms or worsening condition. Outpatient referral: None required Discharge Medications: None required Departure Diagnosis: Primary Impression: Hyperglycemia Condition: Stable DAVID GOMEZ MD Jan 23, 2019 12:58
[2019-01-23 13:51] VITALS: BP 114/65; PULSE 88; RESP 20
== END 2019-01-23 13:51 | disposition home or self-care (01) ==
LOC: E/R 11:39
DX: E11.65 Type 2 diabetes mellitus with hyperglycemia (principal); Z79.84 Long term (current) use of oral hypoglycemic drugs
CPT/HCPCS: 36415; 80048; 81003; 82803; 82962; 83735; 84100; 85025; J7030; Z7502

== ENCOUNTER 2019-02-19 09:26 | Emergency (ER) | payer MEDICAID ==
[~2019-02-19] VITALS: Ht 180.3 cm; Wt 108.3 kg
[~2019-02-19 09:26] MED LIST changes: -ACET500C5 PO; -BEN50 PO; -CETI10CA PO; -CLOT30CR24 TOP; -FLUC150T PO; -FLUT9.9S NASAL; +IBUP800T48 PO; -MUPI22OI2 TOP; -NAPR-985 PO; -PHEN-538 PO; -SULF1TAB31 PO; -TRAM50TA2 PO
[2019-02-19 09:52] VITALS: BP 148/85; PULSE 83; RESP 18; Ht 180.3 cm; Wt 108.3 kg
== END 2019-02-19 10:45 | disposition home or self-care (01) ==
LOC: FTE 09:26
DX: E11.69 Type 2 diabetes mellitus with other specified complication (principal); Z79.84 Long term (current) use of oral hypoglycemic drugs
CPT/HCPCS: 82962; Z7502; 99281

== ENCOUNTER 2019-02-20 21:30 | Emergency (ER) | payer MEDICAID ==
[~2019-02-20] VITALS: Ht 180.3 cm; Wt 110.9 kg
[2019-02-20 21:32] VITALS: Ht 180.3 cm; Wt 110.9 kg
[2019-02-20] MEDS ORDERED: ASPIRIN 325 MG TAB PO ONE (22:30)
[2019-02-20] MEDS ORDERED: ONDANSETRON 4 MG INJ IV STA (23:08)
[2019-02-20] MEDS ORDERED: morphine 4 MG/ML VIAL IV STA (23:08)
[2019-02-20] MEDS ORDERED: SOD CHLORIDE 0.9% 1,000 ML IV ONE (23:30)
[2019-02-20] MEDS ORDERED: INSULIN REGULAR, HUMAN 100 UNIT/1 ML 3ML VIAL SC STA (23:57)
[2019-02-21] MEDS ORDERED: SOD CHLORIDE 0.9% 1,000 ML IV ONE
[2019-02-21] MEDS ORDERED: INSULIN REGULAR, HUMAN 100 UNIT/1 ML 3ML VIAL SC ONE (00:30)
[2019-02-21] MEDS ORDERED: morphine 4 MG/ML VIAL IV STA (02:07)
[2019-02-21 03:02] VITALS: BP 129/66; PULSE 91; RESP 18
== END 2019-02-21 03:30 | disposition home or self-care (01) ==
LOC: FTE 21:30
DX: M54.6 Pain in thoracic spine (principal); M62.838 Other muscle spasm; E11.65 Type 2 diabetes mellitus with hyperglycemia; R07.9 Chest pain, unspecified; Z79.84 Long term (current) use of oral hypoglycemic drugs
CPT/HCPCS: 71046; 80053; 82150; 82962; 83690; 84484; 85025; 85610; 85730; 93005; 96361; 96372; 96374; 96375; 96376; J1815; J2270; J2405; J7030; Z7502; Z7610